=== PATIENT | female | born 2000 | race Caucasian/White ===

== ENCOUNTER 2020-09-28 10:10 | Outpatient (CLI) | payer OTHER ==
[2020-09-28] MEDS ORDERED: BETAMET ACET-BETAMETH SOD PHOS 6 MG/ML MDV IM SCH (10:30)
[2020-09-28 10:32] VITALS: BP 112/64; PULSE 82; RESP 18; TEMP 97.6
== END 2020-09-28 10:33 | disposition home or self-care (01) ==
LOC: FBPOP 10:10
PROVIDERS: ATTEND Obstetrics & Gynecology
DX: O26.93 Pregnancy related conditions, unspecified, third trimester (principal); Z3A.35 35 weeks gestation of pregnancy
CPT/HCPCS: 96372; J0702

== ENCOUNTER 2020-09-29 10:11 | Outpatient (CLI) | payer OTHER ==
[2020-09-29] MEDS ORDERED: BETAMET ACET-BETAMETH SOD PHOS 6 MG/ML MDV IM SCH (10:30)
[2020-09-29 10:44] VITALS: BP 107/68; PULSE 70; RESP 17; TEMP 97.5
--- NOTE | 2020-09-29 17:14 | P.MSEPDOC ---
Presenting Problems - Arrival Data Date of Arrival on Unit: 09/29/20 Time of Arrival on Unit: 10:11 Mode of Transport: Ambulatory - Complaint OB-Reason for Admission/Chief Complaint: Celestone Injection Medical History - Information : 1 Para: 0 Term: 0 : 0 Abortions: Spontaneous or Elective: 0 Number of Living Children: 0 - Gestational Age Gestational Age by LENNOX (wks/days): 35 Weeks and 3 Days - History Complications: Other Comment: dilated umbilical cord Review of Systems - Review of Systems Constitutional: No problems Breast: No problems ENT: No problems Cardiovascular: No problems Respiratory: No problems Gastrointestinal: No problems Genitourinary: No problems Musculoskeletal: No problems Neurological: No problems Skin: No problems Vital Signs - Temperature Temperature: 97.5 F Temperature Source: Temporal Artery Scan - Pulse Right Brachial Pulse Rate: 70 Pulse Assessment Method: Automatic Cuff - Respirations Respiratory Rate: 17 Oxygen Delivery Method: Room Air O2 Sat by Pulse Oximetry: 98 - Blood Pressure Right Arm Blood Pressure: 107/68 Blood Pressure Mean: 81 Blood Pressure Source: Automatic Cuff Physician Notification - Physician Notified Physician Notified Date: 09/29/20 Physician Notified Time: 10:30 Physician: Dr Brennan Stiles Order Received: Yes (dc home after injection) - Notification Comment Comment: no NST needed at this time, pt reports + fm, denies contractions/lof/vb Maternal Triage Index - Scheduled/Requesting Priority 5 Scheduled/Requesting Priority 5: Yes Criteria Met for Priority 5: celeston injection administered Disposition - Disposition OB Disposition: Discharge to home, Written follow up instructions reviewed Discharge Date: 09/29/20 Discharge Time: 10:44 I agree with the RN Medical Screening Exam: Yes Case reviewed; plan agreed upon as documented in EMR&OBIX.: Yes Diagnosis: LABOR AND DELIVERY COMP BY VASCULAR LESION OF CORD, FETUS 1
== END 2020-09-29 10:44 | disposition home or self-care (01) ==
LOC: FBPOP 10:11
PROVIDERS: ATTEND Obstetrics & Gynecology
DX: O75.89 Other specified complications of labor and delivery (principal); Z3A.35 35 weeks gestation of pregnancy
CPT/HCPCS: 96372; J0702

== ENCOUNTER 2020-10-01 11:40 | Outpatient (CLI) | payer OTHER ==
[2020-10-01 12:04] VITALS: BP 117/57; PULSE 93; RESP 18; TEMP 97.1
--- NOTE | 2020-10-04 13:06 | P.MSEPDOC ---
Presenting Problems - Arrival Data Date of Arrival on Unit: 10/01/20 Time of Arrival on Unit: 11:42 Mode of Transport: Ambulatory - Complaint OB-Reason for Admission/Chief Complaint: NST Comment: dilated umbilical cord, IOL next week per Dr Barrios Medical History - Information : 1 Para: 0 Term: 0 : 0 Abortions: Spontaneous or Elective: 0 Number of Living Children: 0 - Gestational Age Gestational Age by LENNOX (wks/days): 35 Weeks and 6 Days Review of Systems - Review of Systems Constitutional: No problems Breast: No problems ENT: No problems Cardiovascular: No problems Respiratory: No problems Gastrointestinal: No problems Genitourinary: No problems Musculoskeletal: No problems Neurological: No problems Skin: No problems Vital Signs - Temperature Temperature: 97.1 F Temperature Source: Temporal Artery Scan - Pulse Right Sitting Brachial Pulse Rate: 93 Pulse Assessment Method: Automatic Cuff - Respirations Respiratory Rate: 18 Oxygen Delivery Method: Room Air O2 Sat by Pulse Oximetry: 98 - Blood Pressure Right Arm Sitting Blood Pressure: 117/57 Blood Pressure Mean: 77 Blood Pressure Source: Automatic Cuff Physician Notification - Physician Notified Physician Notified Date: 10/01/20 Physician Notified Time: 12:00 Physician: Kirsty Amin New Order Received: Yes - Notification Comment Comment: OK to dc home. Follow up with Dr Barrios as scheduled. Maternal Triage Index - Maternal Triage Index Presenting for scheduled procedure w/no complaint: Yes - Scheduled/Requesting Priority 5 Scheduled/Requesting Priority 5: Yes Criteria Met for Priority 5: NST Disposition - Disposition OB Disposition: Discharge to home Discharge Date: 10/01/20 Discharge Time: 12:04 I agree with the RN Medical Screening Exam: Yes Case reviewed; plan agreed upon as documented in EMR&OBIX.: Yes Diagnosis: OTHER MALFORMATION OF PLACENTA, THIRD TRIMESTER
== END 2020-10-01 12:10 | disposition home or self-care (01) ==
LOC: FBPOP 11:40
PROVIDERS: ATTEND Obstetrics & Gynecology
DX: O43.193 Other malformation of placenta, third trimester (principal); Z3A.35 35 weeks gestation of pregnancy
CPT/HCPCS: 59025; 99213

== ENCOUNTER 2020-10-04 06:00 | Inpatient (IN) | payer OTHER ==
[2020-10-04] MEDS ORDERED: CARBOPROST TROMETHAMINE 250 MCG/ML 1 ML AMP IM PRN (06:54)
[2020-10-04] MEDS ORDERED: OXYTOCIN 10 UNIT/ML 1 ML VIAL IM PRN (06:54)
[2020-10-04] MEDS ORDERED: TERBUTALINE 1 MG/ML VIAL SQ PRN (06:54)
[2020-10-04] MEDS ORDERED: METHYLERGONOVINE 0.2 MG/ML 1 ML AMP IM PRN (06:54)
[2020-10-04] MEDS ORDERED: LIDOCAINE 0.5% (PF) 5 MG/ML (50 ML SDV) SQ PRN (06:54)
[2020-10-04 07:19] LABS: Basophils # (A) 0.1 k/uL (0-0.2); Basophils % (A) 1 %; Eosinophils # (A) 0.1 k/uL (0-0.7); Eosinophils % (A) 2 %; HCT 34.7 % (34.0-46.0); Lymphocytes # (A) 1.3 k/uL (1.0-4.8); Lymphocytes % (A) 18 %; MCHC 34.6 g/dL (31.0-37.0); MCV 95.5 fL (80.0-100.0); Mean Platelet Volume 9.8; Monocytes # (A) 0.4 k/uL (0-1.0); Monocytes % (A) 6 %; Neutrophils % (A) 71 %; Platelet Count 141 k/uL (150-450); RBC 3.64 m/uL (3.80-5.40); RDW 13.1 % (11.5-15.5); WBC 7.1 k/uL (3.8-10.6)
[2020-10-04] MEDS: LACTATED RINGERS 1,000 ML IV SCH ×3 (07:21→23:01)
[2020-10-04] MEDS: OXYTOCIN 30 UNITS/500 ML NS 30 UNIT in SALINE 1 500ML.BAG IV SCH ×2 (07:22→20:11)
[2020-10-04] MEDS ORDERED: BUTORPHANOL 1 MG/ML 1 ML VIAL IV PRN (09:52)
[2020-10-04] MEDS ORDERED: SODIUM CHLORIDE 0.9% 100 ML BAG ONE (13:08)
[2020-10-04] MEDS ORDERED: fentaNYL (PF) 50 MCG/ML 5 ML AMP ONE (13:08)
[2020-10-04] MEDS ORDERED: ROPIVACAINE 5MG/ML 20ML VIAL ONE (13:08)
[2020-10-04] MEDS ORDERED: diphenhydrAMINE 50 MG CAP PO PRN (19:55)
[2020-10-04] MEDS ORDERED: LANOLIN CREAM 5 GM TUBE TOPICAL PRN (19:55)
[2020-10-04] MEDS ORDERED: diphenhydrAMINE 25 MG CAP PO PRN (19:55)
[2020-10-04] MEDS ORDERED: BENZOCAINE/MENTHOL SPRAY 1 GM/SPRAY AEROSOL TOPICAL PRN (19:55)
[2020-10-04] MEDS ORDERED: ZOLPIDEM 5 MG TAB PO PRN (19:55)
[2020-10-04] MEDS ORDERED: IBUPROFEN 600 MG TAB PO PRN (19:55)
[2020-10-04] MEDS ORDERED: HYDROCORTISONE 2.5% RECTAL CREAM 30 GM TUBE RECTAL PRN (19:55)
[2020-10-04] MEDS ORDERED: diphenhydrAMINE 50 MG/ML 1 ML VIAL IVP PRN ×2 (19:55)
[2020-10-04] MEDS ORDERED: ACETAMINOPHEN TAB 325 MG TAB PO PRN (19:55)
[2020-10-04] MEDS ORDERED: SIMETHICONE 80 MG CHEWABLE PO PRN (19:55)
--- NOTE | 2020-10-04 19:59 | P.HPOB ---
History of Present Illness H&P Date: 10/04/20 Chief Complaint: Intrauterine at 36 weeks: Umbilical varix Patient is a 20-year-old at 36 weeks gestation who has a umbilical/placental varix that was noted on ultrasound she has been followed very closely with maternal- medicine with weekly biophysical profiles and twice weekly NSTs. Her course otherwise has been unremarkable. She did have bilateral hydronephrosis for which the original consultation with maternal- medicine was made but this is taken secondary impact second due to the umbilical vein varix. We are planning induction of labor. She is dilated to 3 cm 80% effaced -3 station. Artificial rupture membranes was perfor med and clear fluid is noted. This delivery recreation is made by maternal medicine. Pitocin augmentation of labor as planned and she is uncertain as to pain management but likely will do an epidural. Past Medical History Past Medical History: No Reported History History of Any Multi-Drug Resistant Organisms: None Reported Additional Past Surgical History / Comment(s): right elbow Past Anesthesia/Blood Transfusion Reactions: No Reported Reaction Past Psychological History: No Psychological Hx Reported Smoking Status: Never smoker Past Alcohol Use History: None Reported Past Drug Use History: None Reported Medications and Allergies Home Medications Medication Instructions Recorded Confirmed Type Pnv No.95/Ferrous Fum/Folic AC 1 tab PO DAILY 10/04/20 10/04/20 History [ Multivitamin Tablet] Allergies Allergy/AdvReac Type Severity Reaction Status Date / Time No Known Allergies Allergy Verified 10/04/20 06:53 Exam Osteopathic Statement: *. No significant issues noted on an osteopathic structural exam other than those noted in the History and Physical/Consult. Vital Signs Temp Pulse Resp BP 10/04/20 06:52 97.5 F L 83 16 119/58 Intake and Output 10/04/20 10/04/20 10/04/20 06:59 14:59 22:59 Other: # Voids 3 Weight 74.389 kg - OBG Physical Exam Breast: both: normal (no masses) Abdomen: bowel sounds normal, no diffuse tenderness, no bruit present, no guarding noted, no hepatomegaly, no splenomegaly, no mass Vulva: both: normal Vagina: normal moisture, no discharge Cervix: no lesion, no discharge Uterus: normal size, normal contour Adnexa: both: normal Anus/Rectum: normal perianal skin, no rectal mass, no hemorrhoids, heme negative Results Result Diagrams: 10/04/20 07:00 Abnormal Lab Results - Last 24 Hours (Table) 10/04/20 Range/Units 07:00 RBC 3.64 L (3.80-5.40) m/uL Plt Count 141 L (150-450) k/uL
[2020-10-04] MEDS ORDERED: LORATADINE-PSEUDOEPH 5-120 MG 1 EACH TAB.ER.12H PO PRN (20:01)
--- NOTE | 2020-10-04 20:01 | P.PROBDLV ---
Vaginal Delivery Note - . Vaginal Delivery Note: Patient progressed to complete and pushing with spontaneous vaginal delivery of a viable male over a first repair the laceration bilateral very urethral/vaginal avulsion's. Falling deliver the head from straight occiput anterior position shoulders were delivered with gentle sideward traction followed by the remainder the baby. Mouth nares were bulb suctioned and baby was placed mother's abdomen where the umbilical cord was allowed to pulsate for 20 seconds prior to clamping and cutting. Once this was completed nursery personnel was present and assumed care. Placenta was then delivered intact Pitocin was added to the IV. Placenta will be sent for the umbilical vein varix.'s first-degree perineal laceration was identified and repaired in usual fashion with 3-0 Vicryl following 1% Xylocaine for analgesia. Avulsion's were left alone as they were not bleeding. scores 7 and 8 at one and 5 minutes respectively and the palate and the weight was 7 lbs. 0 oz. Mother's doing very well . Baby was taken to special care nursery and is being evaluated at this time.
[2020-10-04] MEDS: SENNOSIDES-DOCUSATE SODIUM 1 EACH TAB PO SCH (20:42)
[2020-10-05] MEDS: SENNOSIDES-DOCUSATE SODIUM 1 EACH TAB PO SCH ×2 (08:01→20:14)
[2020-10-05 08:56] LABS: Basophils # (A) 0.1 k/uL (0-0.2); Basophils % (A) 0 %; Eosinophils # (A) 0.1 k/uL (0-0.7); Eosinophils % (A) 1 %; HCT 32.2 % (34.0-46.0); HGB 11.3 gm/dL (11.4-16.0); Lymphocytes # (A) 1.4 k/uL (1.0-4.8); Lymphocytes % (A) 11 %; MCH 33.1 pg (25.0-35.0); MCHC 35.1 g/dL (31.0-37.0); MCV 94.4 fL (80.0-100.0); Mean Platelet Volume 9.6; Monocytes # (A) 0.7 k/uL (0-1.0); Monocytes % (A) 5 %; Neutrophils # (A) 10.4 k/uL (1.3-7.7); Neutrophils % (A) 81 %; Platelet Count 161 k/uL (150-450); RBC 3.41 m/uL (3.80-5.40); RDW 13.1 % (11.5-15.5); WBC 12.8 k/uL (3.8-10.6)
--- NOTE | 2020-10-05 09:34 | P.PNOBGVD ---
Subjective - Subjective Principal diagnosis: day 1 Interval history: Patient doing very well this morning. She voices no complaints. Vital signs are stable and afebrile. Heart regular, lungs clear, extremities are without pain. Abdomen is soft and uterus is firm. We'll continue care for now. All questions are answered for her at this time. Patient reports: Reports appetite normal, Reports voiding normally, Reports pain well controlled, Reports ambulating normally [place]: in NICU Objective - Latest Vital Signs Latest vital signs: Vital Signs Temp Pulse Resp BP Pulse Ox 10/05/20 08:00 98.6 F 83 15 99/57 95 10/04/20 23:50 98.1 F 83 16 96/60 10/04/20 21:50 98.3 F 109 H 16 114/64 10/04/20 21:20 85 16 108/59 10/04/20 20:50 105 H 16 104/62 10/04/20 20:35 103 H 16 107/63 10/04/20 20:20 107 H 16 108/60 10/04/20 20:05 99.1 F 94 16 108/61 10/04/20 19:50 108 H 16 113/61 Intake and Output 10/04/20 10/05/20 10/05/20 22:59 06:59 14:59 Intake Total 667.000 Balance 667.000 Intake: Intake, IV Titration 667.000 Amount Oxytocin 30 Units/500 ml 667.000 Ns 30 unit In Saline 1 500ml.bag @ Per Protocol IV .Q0M [facility] Rx#:[id number] Other: Voiding Method Toilet Toilet # Voids 1 1 1 # Bowel Movements 0 - Labs Labs: Abnormal Lab Results - Last 24 Hours (Table) 10/05/20 Range/Units 08:41 WBC 12.8 H (3.8-10.6) k/uL RBC 3.41 L (3.80-5.40) m/uL Hgb 11.3 L (11.4-16.0) gm/dL Hct 32.2 L (34.0-46.0) % Neutrophils # 10.4 H (1.3-7.7) k/uL
[2020-10-06 08:19] VITALS: BP 92/59; PULSE 77; RESP 16; TEMP 97.9
--- NOTE | 2020-10-06 09:11 | P.DS ---
Providers Date of admission: 10/04/20 06:22 Expected date of discharge: 10/06/20 Attending physician: Juan Pablo Barrios Primary care physician: Stated None Hospital Course: Patient is doing very well day 2. She is ambulating, voiding and tolerating her diet. She voices no complaints. Vital signs are stable and afebrile. Heart regular, lungs clear, extremities without pain. Abdomen is soft uterus is firm and lochia is reported to be light. She is planning discharge home today as it is day 2 baby is still in special care nursery. All questions are answered for her prior to discharge and she is stable for discharge at this time. Discharge instructions were again completely reviewed and prescription for Motrin was 40 to the pharmacy. She'll follow up with me in 6 weeks. Patient Condition at Discharge: Good Plan - Discharge Summary Discharge Rx Participant: No New Discharge Prescriptions: New Ibuprofen [Motrin] 600 mg PO Q6HR PRN #30 tab PRN Reason: Pain No Action Pnv No.95/Ferrous Fum/Folic AC [ Multivitamin Tablet] 1 tab PO DAILY Discharge Medication List Pnv No.95/Ferrous Fum/Folic AC [ Multivitamin Tablet] 1 tab PO DAILY 10/04/20 [History] Ibuprofen [Motrin] 600 mg PO Q6HR PRN #30 tab 10/06/20 [Rx] Follow up Appointment(s)/Referral(s): Juan Pablo Barrios DO [Doctor of Osteopathic Medicine] - 11/15/20 11:00 am Activity/Diet/Wound Care/Special Instructions: No heavy lifting, limit stairs and driving, and pelvic rest. If any high temperatures, heavy bleeding, or severe pain call my office Discharge Disposition: HOME SELF-CARE
[2020-10-06] MEDS: SENNOSIDES-DOCUSATE SODIUM 1 EACH TAB PO SCH (11:30)
== END 2020-10-06 16:20 | disposition home or self-care (01) | DRG 805 ==
LOC: 4FBP 06:22
PROVIDERS: ADMIT Obstetrics & Gynecology; ATTEND Obstetrics & Gynecology
PROC: 10E0XZZ Delivery of Products of Conception, External Approach (ICD-10-PCS; principal; 2020-10-04)
PROC: 0HQ9XZZ Repair Perineum Skin, External Approach (ICD-10-PCS; 2020-10-04)
PROC: 10907ZC Drainage of Amniotic Fluid, Therapeutic from Products of Conception, Via Natural or Artificial Opening (ICD-10-PCS; 2020-10-04)
PROC: 3E033VJ Introduction of Other Hormone into Peripheral Vein, Percutaneous Approach (ICD-10-PCS; 2020-10-04)
PROC: 0HQ9XZZ Repair Perineum Skin, External Approach (ICD-10-PCS; 2020-10-04)
PROC: 4A0HX4Z Measurement of Products of Conception, Cardiac Electrical Activity, External Approach (ICD-10-PCS; 2020-10-04)
PROC: BY4FZZZ Ultrasonography of Third Trimester, Single Fetus (ICD-10-PCS; 2020-10-04)
DX: O70.0 First degree perineal laceration during delivery (principal); O60.14X0 Preterm labor third trimester with preterm delivery third trimester, not applicable or unspecified; Z37.0 Single live birth; N13.30 Unspecified hydronephrosis; O43.893 Other placental disorders, third trimester; O99.892 Other specified diseases and conditions complicating childbirth; O69.5XX0 Labor and delivery complicated by vascular lesion of cord, not applicable or unspecified; Z3A.36 36 weeks gestation of pregnancy
CPT/HCPCS: 85025; 86850; 86900; 86901; 88307

== ENCOUNTER 2021-08-24 00:03 | Emergency (ER) | payer OTHER ==
[2021-08-24 00:08] VITALS: BP 122/76; PULSE 76; RESP 20; TEMP 98.4
[2021-08-24] MEDS ORDERED: SODIUM CHLORIDE 0.9% 1,000 ML IV ONE (00:18)
[2021-08-24 00:41] LABS: Basophils % (A) 0 %; Eosinophils # (A) 0.1 k/uL (0-0.7); Eosinophils % (A) 1 %; HCT 40.9 % (34.0-46.0); HGB 13.5 gm/dL (11.4-16.0); Lymphocytes # (A) 2.1 k/uL (1.0-4.8); Lymphocytes % (A) 22 %; MCHC 32.9 g/dL (31.0-37.0); Monocytes # (A) 0.5 k/uL (0-1.0); Monocytes % (A) 5 %; Neutrophils # (A) 6.6 k/uL (1.3-7.7); Neutrophils % (A) 70 %; Platelet Count 221 k/uL (150-450); RDW 12.2 % (11.5-15.5); WBC 9.4 k/uL (3.8-10.6)
[2021-08-24 00:49] LABS: Appearance,Urine Clear (Clear); Bilirubin,Urine Negative (Negative); Blood,Urine Large (Negative); Color,Urine Yellow; Glucose,Urine (UA) Negative (Negative); Ketones,Urine Negative (Negative); Leukocyte Esterase,Urine Moderate (Negative); Mucus,Urine Rare /hpf; Nitrite,Urine Negative (Negative); PH, Urine 5.5 (5.0-8.0); Protein,Urine Trace (Negative); RBC,Urine >182 /hpf (0-5); Specific Gravity,Urine 1.019 (1.001-1.035); Squamous Epithelial Cell,Urine 1 /hpf (0-4); Urobilinogen,Urine <2.0 mg/dL (<2.0); WBC,Urine 8 /hpf (0-5)
--- NOTE | 2021-08-24 00:58 | ED ---
Female Urogenital HPI - General Chief complaint: Vaginal Bleeding Stated complaint: Vaginal Bleeding, pgt Time Seen by Provider: 08/24/21 00:17 Source: patient, family Mode of arrival: ambulatory Limitations: no limitations - History of Present Illness Initial comments: This is a pleasant 21-year-old female with no significant past medical history. Patient is A0. She presents to emergency department today complaining of mild vaginal bleeding. Patient in no pain. Denies any pelvic or abdominal pain. States that she went through 1 pad hours at work today. Patient had no issues with her previous . Patient previously had been under the care of Dr. Ferris. Patient has had no care with regards to this pregnan cy. Patient states that the leading started yesterday with a few white episodes of spotting. Patient denies any vaginal discharge. No dysuria. No headache, no fever or chills, no changes in vision or hearing, no sore throat or difficulty with speech, no neck pain, no chest pain or shortness of breath, no abdominal pain, no nausea or vomiting, no changes in urination or bowel movements, no numbness or tingling, no extremity pain, no skin rashes or lesions. - Related Data Home Medications Medication Instructions Recorded Confirmed Pnv No.95/Ferrous Fum/Folic AC 1 tab PO DAILY 10/04/20 10/04/20 [ Multivitamin Tablet] Previous Rx's Medication Instructions Recorded Ibuprofen [Motrin] 600 mg PO Q6HR PRN #30 tab 10/06/20 Allergies Allergy/AdvReac Type Severity Reaction Status Date / Time No Known Allergies Allergy Verified 08/24/21 00:08 Review of Systems ROS Statement: Those systems with pertinent positive or pertinent negative responses have been documented in the HPI. ROS Other: All systems not noted in ROS Statement are negative. Past Medical History Past Medical History: No Reported History History of Any Multi-Drug Resistant Organisms: None Reported Past Surgical History: Orthopedic Surgery Additional Past Surgical History / Comment(s): right elbow Past Anesthesia/Blood Transfusion Reactions: No Reported Reaction Past Psychological History: No Psychological Hx Reported Smoking Status: Never smoker Past Alcohol Use History: None Reported Past Drug Use History: None Reported General Exam - General Exam Comments Initial Comments: Patient in no distress. Does not appear to be ill or toxic. Vital signs reviewed Limitations: no limitations General appearance: alert, in no apparent distress Head exam: Present: atraumatic, normocephalic, normal inspection Eye exam: Present: normal appearance, PERRL, EOMI. Absent: scleral icterus, conjunctival injection, periorbital swelling ENT exam: Present: normal exam, mucous membranes moist Neck exam: Present: normal inspection. Absent: tenderness, meningismus, lymphadenopathy Respiratory exam: Present: normal lung sounds bilaterally. Absent: respiratory distress, wheezes, rales, rhonchi, stridor Cardiovascular Exam: Present: regular rate, normal rhythm, normal heart sounds. Absent: systolic murmur, diastolic murmur, rubs, gallop, clicks GI/Abdominal exam: Present: soft, normal bowel sounds. Absent: distended, tenderness, guarding, rebound, rigid Extremities exam: Present: normal inspection, full ROM, normal capillary refill. Absent: tenderness, pedal edema, joint swelling, calf tenderness Back exam: Present: normal inspection Neurological exam: Present: alert, oriented X3, CN II-XII intact Psychiatric exam: Present: normal affect, normal mood Skin exam: Present: warm, dry, intact, normal color. Absent: rash Course Vital Signs 08/24/21 00:04 Temperature 98.4 F Pulse Rate 76 Respiratory 20 Rate Blood Pressure 122/76 O2 Sat by Pulse 100 Oximetry Medical Decision Making - Medical Decision Making Gen. OB workup to include transvaginal ultrasound. Patient's ultrasound shows no evidence of intrauterine or extrauterine . Given the patient's quantitative beta hCG of 41, slightly that she had a early miscarriage. I discussed all findings with the patient. We'll follow the hCG until 0. She given a prescription to have outpatient laboratory work done for repeat quantitative hCG. Patient to follow-up with her [employer]ERN[employer]PECT[employer] physician, Dr. Berry. Patient released in stable condition. Patient was told to return to the ER for any signs or symptoms worsen. Told to return immediately if any other problems arise. All questions answered. Treatment plan discussed. Patient in agreement Every effort has been made to ensure accuracy of this dictation. However, due to the limitations of electronic medical records and dictation devices, errors in charting still occur. The case was discussed in detail with ED attending physician. Presentation, findings, treatment plan discussed in detail. Photolettering Machine Operator Dr. Moncada - Lab Data Result diagrams: 08/24/21 00:25 07/15/22 00:25 Lab Results 08/24/21 08/24/21 08/24/21 Range/Units 00:14 00:14 00:25 WBC 9.4 (3.8-10.6) k/uL RBC 4.50 (3.80-5.40) m/uL Hgb 13.5 (11.4-16.0) gm/dL Hct 40.9 (34.0-46.0) % MCV 91.0 (80.0-100.0) fL MCH 30.0 (25.0-35.0) pg MCHC 32.9 (31.0-37.0) g/dL RDW 12.2 (11.5-15.5) % Plt Count 221 (150-450) k/uL MPV 8.0 Neutrophils % 70 % Lymphocytes % 22 % Monocytes % 5 % Eosinophils % 1 % Basophils % 0 % Neutrophils # 6.6 (1.3-7.7) k/uL Lymphocytes # 2.1 (1.0-4.8) k/uL Monocytes # 0.5 (0-1.0) k/uL Eosinophils # 0.1 (0-0.7) k/uL Basophils # 0.0 (0-0.2) k/uL Sodium (137-145) mmol/L Potassium (3.5-5.1) mmol/L Chloride (98-107) mmol/L Carbon Dioxide (22-30) mmol/L Anion Gap mmol/L BUN (7-17) mg/dL Creatinine (0.52-1.04) mg/dL Est GFR (CKD-EPI)AfAm (>60 ml/min/1.73 sqM) Est GFR (CKD-EPI)NonAf (>60 ml/min/1.73 sqM) Glucose (74-99) mg/dL Calcium (8.4-10.2) mg/dL Total Bilirubin (0.2-1.3) mg/dL AST (14-36) U/L ALT (4-34) U/L Alkaline Phosphatase (38-126) U/L Total Protein (6.3-8.2) g/dL Albumin (3.5-5.0) g/dL HCG, Quant mIU/mL Urine Color Yellow Urine Appearance Clear (Clear) Urine pH 5.5 (5.0-8.0) Ur Specific [place] 1.019 (1.001-1.035) Urine Protein Trace H (Negative) Urine Glucose (UA) Negative (Negative) Urine Ketones Negative (Negative) Urine Blood Large H (Negative) Urine Nitrite Negative (Negative) Urine Bilirubin Negative (Negative) Urine Urobilinogen <2.0 (<2.0) mg/dL Ur Leukocyte Esterase Moderate H (Negative) Urine RBC >182 H (0-5) /hpf Urine WBC 8 H (0-5) /hpf Ur Squamous Epith Cells 1 (0-4) /hpf Urine Mucus Rare H (None) /hpf Urine HCG, Qual Detected (Not Detectd) Blood Type Blood Type Recheck Bld Type Recheck Status Antibody Screen Spec Expiration Date 08/24/21 08/24/21 Range/Units 00:25 00:25 WBC (3.8-10.6) k/uL RBC (3.80-5.40) m/uL Hgb (11.4-16.0) gm/dL Hct (34.0-46.0) % MCV (80.0-100.0) fL MCH (25.0-35.0) pg MCHC (31.0-37.0) g/dL RDW (11.5-15.5) % Plt Count (150-450) k/uL MPV Neutrophils % % Lymphocytes % % Monocytes % % Eosinophils % % Basophils % % Neutrophils # (1.3-7.7) k/uL Lymphocytes # (1.0-4.8) k/uL Monocytes # (0-1.0) k/uL Eosinophils # (0-0.7) k/uL Basophils # (0-0.2) k/uL Sodium 140 (137-145) mmol/L Potassium 3.8 (3.5-5.1) mmol/L Chloride 104 (98-107) mmol/L Carbon Dioxide 25 (22-30) mmol/L Anion Gap 11 mmol/L BUN 11 (7-17) mg/dL Creatinine 0.55 (0.52-1.04) mg/dL Est GFR (CKD-EPI)AfAm >90 (>60 ml/min/1.73 sqM) Est GFR (CKD-EPI)NonAf >90 (>60 ml/min/1.73 sqM) Glucose 96 (74-99) mg/dL Calcium 10.1 (8.4-10.2) mg/dL Total Bilirubin 0.3 (0.2-1.3) mg/dL AST 19 (14-36) U/L ALT 16 (4-34) U/L Alkaline Phosphatase 86 (38-126) U/L Total Protein 7.5 (6.3-8.2) g/dL Albumin 4.7 (3.5-5.0) g/dL HCG, Quant 41.0 mIU/mL Urine Color Urine Appearance (Clear) Urine pH (5.0-8.0) Ur Specific [place] (1.001-1.035) Urine Protein (Negative) Urine Glucose (UA) (Negative) Urine Ketones (Negative) Urine Blood (Negative) Urine Nitrite (Negative) Urine Bilirubin (Negative) Urine Urobilinogen (<2.0) mg/dL Ur Leukocyte Esterase (Negative) Urine RBC (0-5) /hpf Urine WBC (0-5) /hpf Ur Squamous Epith Cells (0-4) /hpf Urine Mucus (None) /hpf Urine HCG, Qual (Not Detectd) Blood Type A Positive Blood Type Recheck A Pos Bld Type Recheck Status No Antibody Screen NEGATIVE Spec Expiration Date 08/27/20212324 - Radiology Data Radiology results: report reviewed, image reviewed Disposition Clinical Impression: Threatened miscarriage in early , Vaginal bleeding affecting early Disposition: HOME SELF-CARE Condition: Good Instructions (If sedation given, give patient instructions): Threatened Miscarriage (ED) Additional Instructions: Return to the outpatient laboratory and 2-3 days for repeat serum blood test. Have the results sent to Dr. Berry. Call tomorrow to set up a follow-up appointment with Dr. Berry. Pelvic rest with no sexual activity until cleared by the PHYSICIAN. Return to the ER immediately if any symptoms worsen, new symptoms arise, or any other problems develop. Is patient prescribed a controlled substance at d/c from ED?: No Referrals: Santa Berry DO [Doctor of Osteopathic Medicine] - 1-2 days Time of Disposition: 02:47
[2021-08-24 01:00] LABS: ALT 16 U/L (4-34); AST 19 U/L (14-36); African American GFR (CKD) >90 (>60 ml/min/1.73 sqM); Albumin 4.7 g/dL (3.5-5.0); Alkaline Phosphatase 86 U/L (38-126); Anion Gap 11 mmol/L; Blood Urea Nitrogen 11 mg/dL (7-17); Calcium 10.1 mg/dL (8.4-10.2); Carbon Dioxide 25 mmol/L (22-30); Chloride 104 mmol/L (98-107); Glucose 96 mg/dL (74-99); Non-African American GFR(CKD) >90 (>60 ml/min/1.73 sqM); Potassium 3.8 mmol/L (3.5-5.1); Sodium 140 mmol/L (137-145); Total Bilirubin 0.3 mg/dL (0.2-1.3); Total Protein 7.5 g/dL (6.3-8.2)
--- NOTE | 2021-08-24 02:20 | US ---
EXAM: US First Trimester , Transabdominal CLINICAL HISTORY: ITS.REASON US Reason: , vaginal bleeding TECHNIQUE: Real-time transabdominal obstetrical ultrasound of the maternal pelvis and a first trimester with image documentation. COMPARISON: No relevant prior studies available. FINDINGS: Gestation: No visible intrauterine . Placenta/amniotic fluid: See above. Uterus/cervix: Uterus measures 8.8 x 5.2 x 7.0 cm. Thickened endometrium measures 2.5 cm. No myometrial mass. Ovaries: Right ovary measures 2.8 x 1.8 x 2.0 cm. Left ovary measures 2.0 x 2.2 x 1.9 cm. No abnormal adnexal mass. Free fluid: No significant free pelvic fluid. IMPRESSION: 1. Thickened endometrium. 2. No visible intrauterine or ectopic . In the setting of positive test, this either represents spontaneous or of unknown location. Correlate with serial quantitative hCG and short interval follow-up ultrasound as clinically indicated.
== END 2021-08-24 02:55 | disposition home or self-care (01) ==
LOC: EC 00:03
DX: O20.0 Threatened abortion (principal); O26.859 Spotting complicating pregnancy, unspecified trimester; Z3A.00 Weeks of gestation of pregnancy not specified
CPT/HCPCS: 36415; 76801; 80053; 81001; 81025; 84702; 85025; 86850; 86900; 86901; 96360; 99284

== ENCOUNTER → 2021-08-26 | Outpatient (CLI) | payer OTHER | END | disposition home or self-care (01) | LOC: EC 10:48 | PROVIDERS: ATTEND Emergency Medicine | DX: O20.0 Threatened abortion (principal); Z3A.00 Weeks of gestation of pregnancy not specified | CPT/HCPCS: 36415; 84702 ==

== ENCOUNTER 2022-08-27 06:09 | Inpatient (IN) | payer OTHER ==
--- NOTE | 2022-08-26 18:03 | P.HPOB ---
History of Present Illness H&P Date: 08/26/22 Chief Complaint: Induction of labor This is a 22 y.o. female, 3, para 1, with an estimated date of confinement of 08/26/2022, estimated gestational age of 40-1/7 weeks, who presents for induction of labor. She has been feeling frequent contractions. Her has been complicated by circumvallate placenta and she has been doing twice weekly NSTs. course has been otherwise uncomplicated. labs: Hemoglobin-13.4 Blood type-A+ Antibody screen-neg Rubella-immune RPR-NR HIV-NR Hepatitis C-neg Random glucose-81 Hepatitis B surface antigen-neg 1 hr. GTT-90 GBS-neg OB Hx: . History of 1 vaginal delivery at 36 weeks and 1 miscarriage. 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 Review of Systems Constitutional: Denies chills, Denies fever Eyes: denies blurred vision, denies pain Ears, nose, mouth and throat: Denies headache, Denies sore throat Cardiovascular: Denies chest pain, Denies shortness of breath Respiratory: Denies cough Gastrointestinal: Reports abdominal pain (irregular contractions) Genitourinary: Reports pelvic pain, Reports Musculoskeletal: Reports low back pain Integumentary: Denies pruritus, Denies rash Neurological: Denies numbness, Denies weakness Psychiatric: Denies anxiety, Denies depression Past Medical History Past Medical History: No Reported History History of Any Multi-Drug Resistant Organisms: None Reported Past Surgical History: Orthopedic Surgery Additional Past Surgical History / Comment(s): right elbow Past Anesthesia/Blood Transfusion Reactions: No Reported Reaction Past Psychological History: No Psychological Hx Reported Smoking Status: Never smoker Past Alcohol Use History: None Reported Past Drug Use History: None Reported - Past Family History Mother Family Medical History: No Reported History Medications and Allergies Home Medications Medication Instructions Recorded Confirmed Type Pnv No.95/Ferrous Fum/Folic AC 1 tab PO DAILY 10/04/20 10/04/20 History [ Multivitamin Tablet] Allergies Allergy/AdvReac Type Severity Reaction Status Date / Time No Known Allergies Allergy Verified 08/24/21 00:08 Exam Osteopathic Statement: *. No significant issues noted on an osteopathic structural exam other than those noted in the History and Physical/Consult. HEENT: within normal limits Heart: regular rate and rhythm Lungs: clear to auscultation bilaterally Abdomen: heart tones: 140's by doppler Cervix: 4 cm/70%/-2 Extremities: neg. Sariah's Assessment and Plan (1) 40 weeks gestation of Status: Acute Code(s): Z3A.40 - 40 WEEKS GESTATION OF SNOMED Code(s): 72379527 Plan: Proceed with oxytocin induction of labor. Expectant management. Epidural anesthesia if desired.
[2022-08-27] MEDS ORDERED: TRANEXAMIC 1,000 MG/100ML-NACL 1,000 MG in EMPTY BAG 1 BAG IV PRN (06:40)
[2022-08-27] MEDS ORDERED: LIDOCAINE 0.5% (PF) 5 MG/ML (50 ML SDV) SQ PRN (06:40)
[2022-08-27] MEDS ORDERED: OXYTOCIN 10 UNIT/ML 1 ML VIAL IM PRN (06:40)
[2022-08-27] MEDS ORDERED: METHYLERGONOVINE 0.2 MG/ML 1 ML AMP IM PRN (06:40)
[2022-08-27] MEDS ORDERED: miSOPROStoL 200 MCG TAB PO PRN (06:40)
[2022-08-27] MEDS ORDERED: OXYTOCIN 30 UNITS/500 ML NS 30 UNIT in SALINE 1 500ML.BAG IV SCH (06:40)
[2022-08-27] MEDS ORDERED: LIDOCAINE 1% (10MG/ML) FOR IV START INTRADERMA PRN (06:40)
[2022-08-27] MEDS ORDERED: TERBUTALINE 1 MG/ML VIAL SQ PRN (06:40)
[2022-08-27] MEDS ORDERED: CARBOPROST TROMETHAMINE 250 MCG/ML 1 ML AMP IM PRN (06:40)
[2022-08-27 07:24] LABS: Basophils # (A) 0.1 k/uL (0-0.2); Basophils % (A) 1 %; Eosinophils # (A) 0.1 k/uL (0-0.7); Eosinophils % (A) 2 %; HCT 35.1 % (34.0-46.0); HGB 12.2 gm/dL (11.4-16.0); Lymphocytes # (A) 1.7 k/uL (1.0-4.8); Lymphocytes % (A) 25 %; MCH 32.3 pg (25.0-35.0); MCHC 34.6 g/dL (31.0-37.0); MCV 93.3 fL (80.0-100.0); Mean Platelet Volume 10.9; Monocytes # (A) 0.4 k/uL (0-1.0); Monocytes % (A) 5 %; Neutrophils # (A) 4.5 k/uL (1.3-7.7); Neutrophils % (A) 65 %; Platelet Count 129 k/uL (150-450); RBC 3.76 m/uL (3.80-5.40); RDW 13.6 % (11.5-15.5); WBC 6.9 k/uL (3.8-10.6)
[2022-08-27 07:31] VITALS: RESP 16
[2022-08-27] MEDS: LACTATED RINGERS 1,000 ML IV SCH ×2 (07:39→10:58)
[2022-08-27] MEDS ORDERED: SODIUM CHLORIDE 0.9% 100 ML BAG ONE (10:37)
[2022-08-27] MEDS ORDERED: ROPIVACAINE 5 MG/ML 20 ML AMPULE ONE (10:37)
[2022-08-27] MEDS ORDERED: fentaNYL (PF) 50 MCG/ML 5 ML AMP ONE (10:37)
[2022-08-27] MEDS ORDERED: diphenhydrAMINE 25 MG CAP PO PRN (14:02)
[2022-08-27] MEDS ORDERED: HYDROCORTISONE 2.5% RECTAL CREAM 30 GM TUBE RECTAL PRN (14:02)
[2022-08-27] MEDS ORDERED: diphenhydrAMINE 50 MG/ML 1 ML VIAL IVP PRN ×2 (14:02)
[2022-08-27] MEDS ORDERED: SIMETHICONE 80 MG CHEWABLE PO PRN (14:02)
[2022-08-27] MEDS ORDERED: LANOLIN CREAM 5 GM TUBE TOPICAL PRN (14:02)
[2022-08-27] MEDS ORDERED: ZOLPIDEM 5 MG TAB PO PRN (14:02)
[2022-08-27] MEDS ORDERED: diphenhydrAMINE 50 MG CAP PO PRN (14:02)
[2022-08-27] MEDS ORDERED: BENZOCAINE/MENTHOL SPRAY 1 GM/SPRAY AEROSOL TOPICAL PRN (14:02)
[2022-08-27] MEDS ORDERED: ACETAMINOPHEN TAB 325 MG TAB PO PRN (14:02)
--- NOTE | 2022-08-27 18:14 | P.PROBDLV ---
Vaginal Delivery Note - . Vaginal Delivery Note: The patient reached complete dilation after epidural anesthesia and artificial rupture of membranes with clear fluid noted. She did undergo oxytocin induction of labor. Her epidural was working well and after draining her bladder, she was encouraged to push. Infant's head came to a crown. With one further push, the 's head delivered across the perineum in a right occiput anterior lie. With one further push, the anterior shoulder did not release. Patient was instructed to stop pushing and I was able to palpate the positioning of the baby. I was unable to rotate the anterior shoulder but I was able to palpate the posterior shoulder and was able to put my finger underneath the right arm. With one further push from mother was able to deliver the posterior shoulder and right arm followed by the anterior shoulder. The remainder the baby was then easily delivered then and placed on mother's abdomen. Cord was clamped and cut and infant was taken to warmer for evaluation. A viable female infant was noted with scores of 9 at 1 minute and 9 at 5 minutes and infant weight of 9 pounds 5.6 ounces. The entire shoulder dystocia lasted less than 2 minutes. Placenta delivered shortly thereafter, intact, with a three-vessel cord. Uterus contracted fairly well after oxytocin was given and uterine massage was carried out. A gloved hand was placed within the uterine cavity and some placental membranous tissue was removed. Uterus did clamp down fairly well after this. Inspection of the perineum revealed a small first-degree perineal laceration. This area was anesthetized with 1% lidocaine and then sutured with 3-0 Vicryl suture in a running locked fashion. Estimated blood loss is approximately 300 mL's. Both mother and are in stable condition. is moving all extremities and no evidence of any fracture is noted. There is some bruising on the 's face. Patient and her were advised about the shoulder dystocia and the risks for future . She is advised that she should have a delivery with her next baby if she does decide to conceive again.
[2022-08-27] MEDS: SENNOSIDES-DOCUSATE SODIUM 1 EACH TAB PO SCH (21:49)
[2022-08-28] MEDS: IBUPROFEN 600 MG TAB PO PRN ×2 (02:55→12:30)
[2022-08-28 06:48] LABS: Basophils % (A) 1 %; Eosinophils # (A) 0.2 k/uL (0-0.7); Eosinophils % (A) 2 %; HCT 31.3 % (34.0-46.0); HGB 10.6 gm/dL (11.4-16.0); Lymphocytes # (A) 1.8 k/uL (1.0-4.8); Lymphocytes % (A) 23 %; MCH 31.9 pg (25.0-35.0); MCHC 33.8 g/dL (31.0-37.0); MCV 94.4 fL (80.0-100.0); Monocytes # (A) 0.4 k/uL (0-1.0); Monocytes % (A) 5 %; Neutrophils # (A) 5.5 k/uL (1.3-7.7); Neutrophils % (A) 68 %; Platelet Count 116 k/uL (150-450); RBC 3.32 m/uL (3.80-5.40); RDW 13.5 % (11.5-15.5); WBC 8.1 k/uL (3.8-10.6)
[2022-08-28] MEDS: SENNOSIDES-DOCUSATE SODIUM 1 EACH TAB PO SCH (08:03)
[2022-08-28] MEDS ORDERED: PRENATAL VIT-IRON-FOLIC ACID 1 EACH TABLET PO SCH (09:00)
--- NOTE | 2022-08-28 09:01 | P.DS ---
Providers Date of admission: 08/27/22 06:09 Expected date of discharge: 08/28/22 Attending physician: Santa Berry Primary care physician: Stated None - Discharge Diagnosis(es) (1) 40 weeks gestation of Current Visit: No Status: Acute Hospital Course: This is a 22-year-old female 3 para 1 at 40 and one sevenths weeks who presented for induction of labor. She underwent oxytocin induction of labor and delivered vaginally a viable female infant with scores of 9 at 1 minute and 9 at 5 minutes and weight of 9 pounds 5.6 ounces. Delivery was complicated by a shoulder dystocia that was relieved within 2 minutes. Patient and her were both counseled on the need for delivery for any future pregnancies. Bleeding has been minimal. She is breast-feeding. Lochia is decreasing. Pain is fairly well controlled. Vital signs are stable. Abdomen is soft with fundus firm and nontender. Extremities show negative Homans. Impression is status post vaginal delivery day #1. Plan is to discharge home today. Routine instructions are given. She will be given a prescription for ibuprofen. She has a breast pump at home. She is advised to call the office if she has any further questions or concerns prior to her appointment time. Procedures: Oxytocin induction of labor Spontaneous vaginal delivery of a viable female infant on 08/27/2022 Patient Condition at Discharge: Stable Plan - Discharge Summary New Discharge Prescriptions: New Ibuprofen [Motrin] 600 mg PO Q6HR PRN #60 tab PRN Reason: Mild Pain (Scale 1 To 3) Continue Pnv No.95/Ferrous Fum/Folic AC [ Multivitamin Tablet] 1 tab PO DAILY Discharge Medication List Pnv No.95/Ferrous Fum/Folic AC [ Multivitamin Tablet] 1 tab PO DAILY 10/04/20 [History] Ibuprofen [Motrin] 600 mg PO Q6HR PRN #60 tab 08/28/22 [Rx] Follow up Appointment(s)/Referral(s): Santa Berry DO [Doctor of Osteopathic Medicine] - 6 Weeks Activity/Diet/Wound Care/Special Instructions: Instructions 1. Do not begin any exercise program for 3 weeks. 2. Do not resume sexual relations for 3 weeks or longer if uncomfortable. 3. You may take tub baths or showers at any time. 4. You may use tampons if desired after 3 weeks. 5. Keep the area of episiotomy (stitches) clean and dry. 6. If you are not nursing, wear a good fitting, supportive bra during the day and limit fluid intake for at least 1 week to prevent breast engorgement. 7. Call the office, [phone], within the next week to make appointment for your 6 week checkup if it has not already been made. 8. Report any of the following occurrences to the doctor promptly: a. Heavy, excessive bleeding b. Chills, fever c. Burning or frequency of urination d. Pain or redness and breasts if nursing e. Increasing pain or swelling in episiotomy (stitches). In addition to the above instructions, the following additional should be followed: 1. No heavy lifting or straining (exercising) until after 6 week checkup. 2. Keep abdominal incision clean and dry: You may wear a dressing if more comfortable. 3. Make office appointment for 10 days after going home or as instructed by her doctor. Discharge Disposition: HOME SELF-CARE
[2022-08-28 12:28] VITALS: BP 96/61; PULSE 65; TEMP 97.9
== END 2022-08-28 15:30 | disposition home or self-care (01) | DRG 807 ==
LOC: 4FBP 06:09
PROVIDERS: ADMIT Obstetrics & Gynecology; ATTEND Obstetrics & Gynecology
PROC: 10E0XZZ Delivery of Products of Conception, External Approach (ICD-10-PCS; principal; 2022-08-27)
PROC: 0HQ9XZZ Repair Perineum Skin, External Approach (ICD-10-PCS; 2022-08-27)
PROC: 3E033VJ Introduction of Other Hormone into Peripheral Vein, Percutaneous Approach (ICD-10-PCS; 2022-08-27)
PROC: 10907ZC Drainage of Amniotic Fluid, Therapeutic from Products of Conception, Via Natural or Artificial Opening (ICD-10-PCS; 2022-08-27)
DX: O66.0 Obstructed labor due to shoulder dystocia (principal); Z37.0 Single live birth; O70.0 First degree perineal laceration during delivery; O43.113 Circumvallate placenta, third trimester; O48.0 Post-term pregnancy; Z3A.40 40 weeks gestation of pregnancy
CPT/HCPCS: 85025; 86850; 86900; 86901